=== PATIENT | male | born 1980 | race Two or more races ===

== ENCOUNTER 2019-11-27 13:47 | Emergency (ER) | payer OTHER ==
[~2019-11-27] VITALS: Ht 180.3 cm; Wt 68.0 kg
--- NOTE | 2019-11-27 13:50 | NUR ---
PT NATALIYA FROM THE STREETS C/O SI "I WANT TO OVERDOSE MY SELF" PT IS AAOX4, NOT IN RESPIRATORY DISTRESS, V/S STABLE, KEPT RESTED AND COMFORTABLE, WILL CONTINUE TO MONITOR.
--- NOTE | 2019-11-27 13:55 | NUR ---
URINE SPECIMEN COLLECTED AND SENT TO LAB.
[2019-11-27] MEDS ORDERED: OLANZAPINE 5 MG TABLET PO ONE (14:00)
--- NOTE | 2019-11-27 14:02 | NUR ---
SECURITY AT BEDSIDE FOR WANDING.
--- NOTE | 2019-11-27 14:03 | NUR ---
ER PHLEB AT BEDSIDE FOR BLOOD DRAW.
[2019-11-27] MEDS ORDERED: OLANZAPINE 5 MG TABLET ONE ×2 (14:14→14:16)
[2019-11-27 14:22] LABS: BASOPHILS % (AUTO) 0.6 % (0.0-2.0); EOSINOPHILS % (AUTO) 2.7 % (0.0-6.0); HEMATOCRIT 41 % (39-51); HEMOGLOBIN 13.9 g/dL (13.5-17.5); LYMPHOCYTES # (AUTO) 1.7 /CMM (0.8-4.8); LYMPHOCYTES % (AUTO) 24.5 % (20.0-44.0); MEAN CORPUSCULAR HGB CONC 34 g/dl (31.0-36.0); MEAN CORPUSCULAR VOLUME 89 fL (80-96); MONOCYTES # (AUTO) 0.7 /CMM (0.1-1.30); MONOCYTES % (AUTO) 9.7 % (2.0-12.0); NEUTROPHILS # (AUTO) 4.2 /CMM (1.8-8.9); NEUTROPHILS % (AUTO) 62.5 % (43.0-81.0); PLATELET COUNT (AUTO) 218 /CMM (150-450); RED BLOOD CELL COUNT(AUTO) 4.66 MIL/uL (4.5-6.0); WHITE BLOOD COUNT (AUTO) 6.8 K/uL (4.3-11.0)
[2019-11-27 14:23] LABS: APPEARANCE,URINE Clear (CLEAR); BILIRUBIN,URINE Negative (NEGATIVE); BLOOD, URINE Negative Ery/uL (NEGATIVE); COLOR,URINE Yellow (YELLOW); KETONES,URINE Trace (NEGATIVE); LEUKOCYTE ESTERASE ,URINE Negative (NEGATIVE); NITRITE, URINE Negative (NEGATIVE); PH,URINE 6.5 (5.0-8.0); PROTEIN,URINE Negative (NEGATIVE); UGLUCOSE Negative (NEGATIVE); UROBILINOGEN,URINE 0.2 EU/dL (0.2)
[2019-11-27 14:34] LABS: ALANINE AMINOTRANSFERASE 77 U/L (12-78); ALBUMIN 3.9 g/dL (3.4-5.0); ALCOHOL, BLOOD < 3 mg/dL (0-0); ALKALINE PHOSPHATASE 64 U/L (46-116); ASPARTATE AMINOTRANSFERASE 63 U/L (15-37); BILIRUBIN,DIRECT 0.2 mg/dL (0.0-0.2); BILIRUBIN,TOTAL 0.9 mg/dL (0.2-1.0); CALCIUM, SERUM 8.9 mg/dL (8.5-10.1); CARBON DIOXIDE 31 mmol/L (21-32); CHLORIDE 100 mmol/L (98-107); GLUCOSE 81 mg/dL (74-106); POTASSIUM 3.7 mmol/L (3.5-5.1); SODIUM SERUM 139 mmol/L (136-145); TOTAL PROTEIN, SERUM 7.6 g/dL (6.4-8.2); UREA NITROGEN, BLOOD 21 mg/dL (7-18)
[2019-11-27 14:35] LABS: SALICYLATE 0.9 mg/dL (2.8-20.0)
[2019-11-27 14:36] LABS: ACETAMINOPHEN 0 ug/ml (10-30)
--- NOTE | 2019-11-27 15:00 | NUR ---
Patient awake alertno agitation or hallucination @ this time food safety tray given
--- NOTE | 2019-11-27 16:20 | NUR ---
Patient asleep but arousable non complain @ this time continue to monitor
--- NOTE | 2019-11-27 17:10 | NUR ---
SPOKED TO [facility].
--- NOTE | 2019-11-27 17:45 | NUR ---
FOOD TRAY PROVIDED.
--- NOTE | 2019-11-27 18:44 | NUR ---
Patient calm @ this time he does follows command no agitaion no hallucination
[2019-11-27 22:10] VITALS: BP 107/63
--- NOTE | 2019-11-27 22:11 | NUR ---
SO CARL[facility]ADO [address]
--- NOTE | 2019-11-27 22:20 | NUR ---
CALLED CALL THE CAR FOR BLS TRANSPORT TO [facility]. AWAITING ETA.
--- NOTE | 2019-11-27 22:29 | NUR ---
RECEIVED A CALL FROM CALL THE CAR C/O JACKSON BRODERICK ARRANGED BY [employer]. ETA: [id number]
--- NOTE | 2019-11-27 22:38 | NUR ---
REPORT GIVEN TO ANGELA AT [facility]
--- NOTE | 2019-11-27 22:55 | NUR ---
REPORT GIVEN TO biochemistry technologist FROM [facility]
--- NOTE | 2019-11-27 23:03 | NUR ---
PT WAS PICKED UP VIA [facility]ARD MELVIN ALVARADO IN STABLE CONDITION.
== END 2019-11-27 23:05 ==
LOC: ER 13:52
DX: F20.0 Paranoid schizophrenia (principal); Z59.0 Homelessness
CPT/HCPCS: 36415; 80048; 80076; 80305; 80307; 80329; 81001; 85025; 99285; G0480; 81000-TC